=== PATIENT | female | born 1995 | race Caucasian/White ===

== ENCOUNTER → 2018-02-07 | Outpatient (REF) | payer OTHER | LOC: M SFHCLERA 14:48 | DX: J02.9 Acute pharyngitis, unspecified (principal) ==

== ENCOUNTER 2018-02-24 16:39 | Day surgery (SDC) | payer OTHER ==
[2018-02-24] MEDS ORDERED: NS 1,000 ML IV ×2 (17:30→18:30)
[2018-02-24 17:45] LABS: HEMATOCRIT 36.2 % (36.0-47.0); HEMOGLOBIN 11.9 g/dl (12.0-15.5); MEAN CORPUSCULAR HEMOGLOBIN 25.7 pg (27.0-33.0); MEAN CORPUSCULAR HGB CONC 32.9 g/dl (32.0-36.5); MEAN CORPUSCULAR VOLUME 78.2 fl (80.0-96.0); PLATELET COUNT, AUTOMATED 257 10^3/uL (150-450); RED BLOOD COUNT 4.63 10^6/uL (4.00-5.40); RED CELL DISTRIBUTION WIDTH 15.9 % (11.5-14.5); WHITE BLOOD COUNT 15.9 10^3/uL (4.0-10.0)
[2018-02-24] MEDS: ACETAMINOPHEN 650 MG SUPP PR (18:10)
[2018-02-24 18:16] LABS: ANION GAP 9 MEQ/L (8-16); BLOOD UREA NITROGEN 5 MG/DL (7-18); CALCIUM LEVEL 8.3 MG/DL (8.5-10.1); CARBON DIOXIDE LEVEL 23 MEQ/L (21-32); CHLORIDE LEVEL 108 MEQ/L (98-107); GLUCOSE, FASTING 82 MG/DL (70-100); HCG, SERUM QUANTITATIVE 13078 MIU/ML; POTASSIUM SERUM 3.4 MEQ/L (3.5-5.1); SODIUM LEVEL 140 MEQ/L (136-145)
[2018-02-24] MEDS: ACETAMINOPHEN 650 MG SUPP As Ordered (18:23)
[2018-02-24] MEDS ORDERED: IBUPROFEN 600 MG TAB PO (18:45)
[2018-02-24] MEDS ORDERED: KETOROLAC 30 MG/ML VIAL (J1885) IV (18:45)
[2018-02-24] MEDS ORDERED: PERCOCET 5MG/325MG TAB As Ordered (18:52)
[2018-02-24] MEDS: PERCOCET 5MG/325MG TAB PO (18:53)
[2018-02-24] MEDS ORDERED: ONDANSETRON 4MG/2ML VIAL (J2405) IV (19:15)
[2018-02-24] MEDS ORDERED: fentaNYL 100 MCG/2 ML INJECTION (J3010) IV (19:15)
[2018-02-24] MEDS ORDERED: LR 1,000 ML IV (19:15)
== END 2018-02-24 19:40 | disposition home or self-care (01) ==
LOC: M SDC 16:39
DX: O02.1 Missed abortion (principal)
CPT/HCPCS: 59820

== ENCOUNTER → 2018-02-24 | Outpatient (CLI) | payer OTHER ==
[~2018-02-24] MED LIST: GLYCOPYRROLATE INJ 0.2 MG/ML 2 ML VIAL As Ordered; KETOROLAC 60 MG/2 ML VIAL (J1885) As Ordered; LIDOCAINE 2% INJ 100 MG/5 ML SDV (FOR ANES.) As Ordered; MIDAZOLAM INJ 2 MG/2 ML VIAL (J2250) As Ordered; NEOSTIGMINE 10 MG/10 ML VIAL (J2710) As Ordered; ONDANSETRON 4MG/2ML VIAL (J2405) As Ordered; PROPOFOL 200 MG/20 ML VIAL As Ordered; ROCURONIUM BROMIDE 50 MG/5 ML VIAL As Ordered; SUCCINYLCHOLINE 100 MG/5 ML SYRINGE (J0330) As Ordered; dexameTHASONE 4 MG/ML 1ML VIAL (J1100) As Ordered; ePHEDrine SULFATE 25 MG/5 ML(5MG/ML) SYRINGE As Ordered; fentaNYL 100 MCG/2 ML INJECTION (J3010) As Ordered
== END ==
LOC: M RAD 14:27
DX: O36.80X0 Pregnancy with inconclusive fetal viability, not applicable or unspecified (principal); Z3A.08 8 weeks gestation of pregnancy
CPT/HCPCS: J2405

== ENCOUNTER 2018-04-19 13:40 | Emergency (ER) | payer OTHER ==
[2018-04-19 16:01] LABS: KETONE, URINE AUTO RFX 1+ mg/dL (NEGATIVE); LEUKOCYTE ESTERASE UR AUTO RFX NEGATIVE (NEGATIVE); MUCUS, URINE RFX MODERATE (NEGATIVE); NITRITE, URINE AUTO RFX NEGATIVE (NEGATIVE); RBC, URINE AUTO RFX 1 /HPF (0-3); SPECIFIC GRAVITY UR AUTO RFX 1.023 (1.002-1.035); SQUAM EPITHELIAL CELL UR AURFX 7 /HPF (0-6); WBC, URINE AUTO RFX 1 /HPF (0-3)
[2018-04-19] MEDS: diphenhydrAMINE INJ 50MG/ML VIAL (J1200) IV (16:08)
[2018-04-19] MEDS: NS 1,000 ML IV (16:08)
[2018-04-19] MEDS: METOCLOPRAMIDE INJ 10MG/2ML VIAL (J2765) IV (16:09)
[2018-04-19 16:19] LABS: BASO % 0.3 % (0.0-1.0); EOS # 0.1 10^3/uL (0.0-0.50); EOS % 0.9 % (0.0-3.0); HEMATOCRIT 38.3 % (36.0-47.0); HEMOGLOBIN 12.3 g/dl (12.0-15.5); IMMATURE GRANULOCYTE % 0.4 % (0-3.0); LYMPH # 2.8 10^3/uL (1.5-6.5); LYMPH % 19.6 % (24.0-44.0); MEAN CORPUSCULAR HEMOGLOBIN 25.9 pg (27.0-33.0); MEAN CORPUSCULAR HGB CONC 32.1 g/dl (32.0-36.5); MEAN CORPUSCULAR VOLUME 80.6 fl (80.0-96.0); MONO # 0.7 10^3/uL (0.0-0.8); MONO % 4.9 % (0.0-5.0); NEUTROPHILS # 10.5 10^3/uL (1.8-7.7); NEUTROPHILS % 73.9 % (36.0-66.0); PLATELET COUNT, AUTOMATED 240 10^3/uL (150-450); RED BLOOD COUNT 4.75 10^6/uL (4.00-5.40); WHITE BLOOD COUNT 14.2 10^3/uL (4.0-10.0)
[2018-04-19 17:05] LABS: ALBUMIN 3.4 GM/DL (3.2-5.2); ALKALINE PHOSPHATASE 75 U/L (45-117); ALT/SGPT 15 U/L (12-78); ANION GAP 9 MEQ/L (8-16); AST/SGOT 14 U/L (7-37); BILIRUBIN,DIRECT < 0.1 MG/DL (0.0-0.2); BILIRUBIN,TOTAL 0.3 MG/DL (0.2-1.0); BLOOD UREA NITROGEN 7 MG/DL (7-18); CALCIUM LEVEL 8.9 MG/DL (8.5-10.1); CARBON DIOXIDE LEVEL 24 MEQ/L (21-32); CHLORIDE LEVEL 107 MEQ/L (98-107); CREATININE FOR GFR 0.52 MG/DL (0.55-1.30); GLUCOSE, FASTING 69 MG/DL (70-100); HCG, SERUM QUANTITATIVE 33159 MIU/ML; LIPASE 51 U/L (73-393); POTASSIUM SERUM 4.1 MEQ/L (3.5-5.1); SODIUM LEVEL 140 MEQ/L (136-145); TOTAL PROTEIN 6.8 GM/DL (6.4-8.2)
== END 2018-04-19 17:20 | disposition home or self-care (01) ==
LOC: M ED 13:40
DX: O99.280 Endocrine, nutritional and metabolic diseases complicating pregnancy, unspecified trimester (principal); E86.0 Dehydration; O21.0 Mild hyperemesis gravidarum; O99.330 Smoking (tobacco) complicating pregnancy, unspecified trimester; F17.210 Nicotine dependence, cigarettes, uncomplicated; O09.90 Supervision of high risk pregnancy, unspecified, unspecified trimester; Z3A.00 Weeks of gestation of pregnancy not specified; Z87.42 Personal history of other diseases of the female genital tract; Z98.890 Other specified postprocedural states
CPT/HCPCS: J1200

== ENCOUNTER 2018-05-29 11:53 | Emergency (ER) | payer OTHER ==
[2018-05-29 13:03] LABS: BASO % 0.3 % (0.0-1.0); EOS # 0.1 10^3/uL (0.0-0.50); EOS % 0.8 % (0.0-3.0); HEMATOCRIT 37.9 % (36.0-47.0); HEMOGLOBIN 12.6 g/dl (12.0-15.5); IMMATURE GRANULOCYTE % 0.7 % (0-3.0); LYMPH # 2.3 10^3/uL (1.5-6.5); MEAN CORPUSCULAR HEMOGLOBIN 27.2 pg (27.0-33.0); MEAN CORPUSCULAR HGB CONC 33.2 g/dl (32.0-36.5); MEAN CORPUSCULAR VOLUME 81.9 fl (80.0-96.0); MONO # 0.7 10^3/uL (0.0-0.8); MONO % 4.9 % (0.0-5.0); NEUTROPHILS # 11.8 10^3/uL (1.8-7.7); NEUTROPHILS % 78.3 % (36.0-66.0); PLATELET COUNT, AUTOMATED 214 10^3/uL (150-450); RED BLOOD COUNT 4.63 10^6/uL (4.00-5.40); RED CELL DISTRIBUTION WIDTH 15.4 % (11.5-14.5); WHITE BLOOD COUNT 15.1 10^3/uL (4.0-10.0)
[2018-05-29 13:18] LABS: KETONE, URINE AUTO RFX NEGATIVE (NEGATIVE); LEUKOCYTE ESTERASE UR AUTO RFX NEGATIVE (NEGATIVE); MUCUS, URINE RFX SMALL (NEGATIVE); NITRITE, URINE AUTO RFX NEGATIVE (NEGATIVE); RBC, URINE AUTO RFX 0 /HPF (0-3); SPECIFIC GRAVITY UR AUTO RFX 1.015 (1.002-1.035); SQUAM EPITHELIAL CELL UR AURFX 2 /HPF (0-6); WBC, URINE AUTO RFX 0 /HPF (0-3)
[2018-05-29 14:54] LABS: HCG, SERUM QUANTITATIVE 46688 MIU/ML
== END 2018-05-29 14:34 | disposition home or self-care (01) ==
LOC: M ED 11:53
DX: O20.8 Other hemorrhage in early pregnancy (principal); O34.80 Maternal care for other abnormalities of pelvic organs, unspecified trimester; Z3A.12 12 weeks gestation of pregnancy; Z79.899 Other long term (current) drug therapy
CPT/HCPCS: 76801

== ENCOUNTER → 2018-07-12 | Outpatient (CLI) | payer OTHER | LOC: M RAD 06:01 | DX: Z36.89 Encounter for other specified antenatal screening (principal); Z3A.17 17 weeks gestation of pregnancy | CPT/HCPCS: 76811 ==

== ENCOUNTER → 2018-08-09 | Outpatient (CLI) | payer OTHER ==
[~2018-08-09] MED LIST changes: +APAP325T4 PO; +BENA25CA4 PO; -GLYCOPYRROLATE INJ 0.2 MG/ML 2 ML VIAL As Ordered; -KETOROLAC 60 MG/2 ML VIAL (J1885) As Ordered; -LIDOCAINE 2% INJ 100 MG/5 ML SDV (FOR ANES.) As Ordered; -MIDAZOLAM INJ 2 MG/2 ML VIAL (J2250) As Ordered; -NEOSTIGMINE 10 MG/10 ML VIAL (J2710) As Ordered; -ONDANSETRON 4MG/2ML VIAL (J2405) As Ordered; +PRENTAB55 PO; -PROPOFOL 200 MG/20 ML VIAL As Ordered; +REGL10TA6 PO; -ROCURONIUM BROMIDE 50 MG/5 ML VIAL As Ordered; -SUCCINYLCHOLINE 100 MG/5 ML SYRINGE (J0330) As Ordered; +ZOFR4TAB14 SL; -dexameTHASONE 4 MG/ML 1ML VIAL (J1100) As Ordered; -ePHEDrine SULFATE 25 MG/5 ML(5MG/ML) SYRINGE As Ordered; -fentaNYL 100 MCG/2 ML INJECTION (J3010) As Ordered
--- NOTE | 2018-08-10 04:20 | REP ---
Clinical: Anatomical evaluation. Comparison: 07/12/2018 . Findings: Examination demonstrates a single live intrauterine in cephalic presentation. motion is identified by technologist. Placenta is noted a anterior and grade air grade zero without evidence for placenta previa or abruption. Amniotic fluid volume is normal. Cervix measures 3.0 cm in length and appears closed. No evidence for nuchal cord. Gestational age by LMP 22 weeks 0 days with NADEEM 12/13/2018 . Gestational age by current measurements 22 weeks 1 day with NADEEM at 12/12/2018 . FHR equals 151 beats per minute. Estimated weight 475 grams ( 49th percentile). Anatomical assessment demonstrates normal structures including cranium, choroid plexus, cavum, cerebellum/posterior fossa, facial profile , lungs, stomach, cord insertion/three-vessel cord, kidneys/bladder, spine, and extremities. Impression: Single live intrauterine in cephalic presentation. Evaluation is somewhat limited due to maternal body habitus. Continued limited evaluation of the nose/lips, heart/ventricular outflow tracts and diaphragm again noted. Electronically Signed by Carlos Saldana MD 08/10/2018 04:11 A
== END ==
LOC: M RAD 10:18
PROVIDERS: ATTEND Nurse Practitioner Women's Health
DX: Z34.82 Encounter for supervision of other normal pregnancy, second trimester (principal); Z3A.22 22 weeks gestation of pregnancy

== ENCOUNTER 2018-08-21 16:46 | Outpatient (CLI) | payer OTHER ==
[~2018-08-21] VITALS: Ht 154.9 cm; Wt 94.0 kg
[2018-08-21 17:05] VITALS: BP 124/67
[2018-08-21] MEDS ORDERED: LR 1,000 ML IV ONE (17:30)
[2018-08-21 18:38] VITALS: BP 113/65
--- NOTE | 2018-08-21 23:05 | IPNPDOC ---
Text Note Date of Service The patient was seen on 08/21/18. NOTE Triage Note Rhonda is a 23yo with SIUP at approx 23wk gestation who presents today with CC of nausea/vomiting, weakness and cramping. She notes she has had nausea her whole , took zofran yesterday but none today. She has not been able to tolerate any food/water today and began feeling weak. No fever/chills. No diarrhea. She feels movement. No vaginal bleeding/loss of fluid. No abnormal vaginal discharge/itching/discomfort. No burning with urination. Vitals wnl, afebrile General: WDWN, resting comfortably in bed Abdomen: soft, gravid, obese, NTTP Extremities: no edema of BLE Doptones positive Electra: no ctx Assessment: Rhonda is a 23yo with SIUP at approx 23wk with PO intolerance for one day with ongoing nausea for her whole - after receiving 2L of IV LR in triage she stated she felt much better- cramping sensation resolved (never any ctx on toco) as well as nausea. Vitals wnl, benign exam. Plan: -safe for discharge -next visit is routine 24wk visit, pt instructed to keep -continue zofran prn -pt instructed to continue PO hydrating and rest, try a warm bath -return precautions given Dr. Enma Askew MD VS,Kalen, I+O VS, Kalen, I+O Vital Signs Date Time Temp Pulse Resp B/P (MAP) Pulse Ox O2 Delivery O2 Flow Rate FiO2 08/21/18 18:38 76 18 113/65 (81) 08/21/18 17:05 98.2 Enma Askew MD Aug 21, 2018 23:05
== END 2018-08-21 19:43 | disposition home or self-care (01) ==
LOC: M LDO 16:46
PROVIDERS: ATTEND Obstetrics & Gynecology
DX: O21.9 Vomiting of pregnancy, unspecified (principal); Z3A.23 23 weeks gestation of pregnancy
CPT/HCPCS: 59025; G0378; G0463

== ENCOUNTER → 2018-08-24 | Outpatient (CLI) | payer OTHER ==
--- NOTE | 2018-08-24 20:52 | REP ---
Clinical: Anatomical evaluation. Comparison: 08/09/2018 . Findings: Examination demonstrates a single live intrauterine in breech presentation. motion is identified by technologist. Placenta is noted anterior and grade grade 1 without evidence for placenta previa or abruption. Amniotic fluid volume is normal. Cervix measures 3.7 cm in length and appears closed. No evidence for nuchal cord. Gestational age by LMP 24 weeks 1 day with NADEEM 12/13/2018 . Gestational age by current measurements 24 weeks 3 days with NADEEM 12/11/2018 . FHR equals 157 beats per minute. Estimated weight 708 grams ( 57th percentile). Anatomical assessment demonstrates normal structures including cranium, choroid plexus, cavum, cerebellum/posterior fossa, facial features, lungs, four-chamber heart/right ventricular outflow tract, diaphragm, stomach, cord insertion/three-vessel cord, kidneys/bladder, spine, and extremities. Impression: Single live intrauterine in breech presentation demonstrating appropriate interval growth. In conjunction with prior examination anatomical assessment is complete and normal. No gross abnormalities are identified. Electronically Signed by Carlos Saldana MD 08/24/2018 08:44 P
== END ==
LOC: M RAD 14:09
PROVIDERS: ATTEND Nurse Practitioner Women's Health
DX: Z36.89 Encounter for other specified antenatal screening (principal); O32.1XX0 Maternal care for breech presentation, not applicable or unspecified; Z3A.24 24 weeks gestation of pregnancy

== ENCOUNTER 2018-09-16 13:26 | Outpatient (CLI) | payer OTHER ==
[~2018-09-16] VITALS: Ht 154.9 cm; Wt 95.7 kg
[2018-09-16 13:44] VITALS: BP 114/57
[2018-09-16] MEDS ORDERED: ASPI1TAB PO (14:09)
[2018-09-16 14:13] LABS: AMORPHOUS SEDIMENT MODERATE (NEGATIVE); APPEARANCE, URINE CLOUDY (CLEAR); BACTERIA, URINE AUTO NEGATIVE (NEGATIVE); BILIRUBIN, URINE AUTO NEGATIVE (NEGATIVE); BLOOD, URINE BLOOD NEGATIVE (NEGATIVE); COLOR, URINE YELLOW (YELLOW); GLUCOSE, URINE (UA) AUTO NEGATIVE (NEGATIVE); KETONE, URINE AUTO NEGATIVE (NEGATIVE); LEUKOCYTE ESTERASE, URINE AUTO NEGATIVE (NEGATIVE); MUCUS, URINE MODERATE (NEGATIVE); NITRITE, URINE AUTO NEGATIVE (NEGATIVE); PROTEIN, URINE AUTO NEGATIVE (NEGATIVE); RBC, URINE AUTO 1 /HPF (0-3); SPECIFIC GRAVITY URINE AUTO 1.019 (1.002-1.035); SQUAMOUS EPITHELIAL CELL UR AU 2 /HPF (0-6); WBC, URINE AUTO 1 /HPF (0-3)
== END 2018-09-16 15:34 | disposition home or self-care (01) ==
LOC: M LDO 13:26
PROVIDERS: ATTEND Obstetrics & Gynecology
DX: O26.893 Other specified pregnancy related conditions, third trimester (principal); R10.30 Lower abdominal pain, unspecified; Z3A.27 27 weeks gestation of pregnancy
CPT/HCPCS: 81001; 87086; G0378; G0463

== ENCOUNTER 2018-10-25 13:00 | Inpatient (IN) | payer OTHER ==
[~2018-10-25] VITALS: Ht 154.9 cm; Wt 98.0 kg
[~2018-10-25 13:00] MED LIST changes: +ASPI1TAB PO
[2018-10-25 13:18] VITALS: BP 121/64
[2018-10-25 15:12] VITALS: BP 114/53
--- NOTE | 2018-10-25 15:43 | IPNPDOC ---
Text Note Date of Service The patient was seen on 10/25/18. NOTE 23 y/o at 33+0 with decr'd FM all day today. Had plenty of nl FM yesterday. Also c/o increased pressure that makes her feel like defecating, but this does not decrease after she poops. Slight incr in urination frequency but no pain with voiding/defecation. Was originally seen in the clinic when she called for decr'd FM, but the tracing after 30 min and stim and feeding her did not improve with noted min rajesh and no accels (no decels however). When presented, random BS was in the 70's. Preg c/b smoker and states max 5/day, obesity and well controlled A1GDM NST on L&D for the last 1-2 hrs shows min to mod rajesh and no decels but no accels either At rads now for BPP Urine dip showed well hydrated and no evid UTI SBAR to Dr Askew soon. Sessions VS,Kalen, I+O VSKalen, I+O Vital Signs Date Time Temp Pulse Resp B/P (MAP) Pulse Ox O2 Delivery O2 Flow Rate FiO2 10/25/18 15:12 98.6 90 18 114/53 (73) 10/25/18 13:33 97 SESSIONS,WARD Swain MD Oct 25, 2018 15:43
--- NOTE | 2018-10-25 16:16 | REP ---
Clinical: well-being. Comparison: 08/24/2018 . Findings: Examination demonstrates a single live intrauterine in breech presentation. motion is identified by technologist. Placenta is noted anterior and grade grade II/III without evidence for placenta previa or abruption. Amniotic fluid volume is normal. Cervix measures 2.6 cm in length and appears closed. Nuchal cord cannot be excluded. Gestational age by LMP 33 weeks 0 days with NADEEM 12/13/2018 . FHR equals 160 beats per minute. Biophysical profile score: 4/8 (breathing 0; movement 0; tone 2; AFV 2) Amniotic fluid index: 17.5 cm (8.3 - 24.5) Umbilical cord SD ratio: 2.89 (2.00 - 3.00). Impression: Single live advanced gestation in breech presentation. Biophysical profile score equals 4/8 Electronically Signed by Carlos Saldana MD 10/25/2018 04:08 P
[2018-10-25] MEDS ORDERED: BETAMETHASONE SOLUSPAN 6MG/ML INJ 5ML (J0702) IM SCH (16:45)
--- NOTE | 2018-10-25 16:53 | IPNPDOC ---
Text Note Date of Service The patient was seen on 10/25/18. NOTE Decision for overnight observation I assumed care of Rhonda at 1615 today. She is a 23y/o at 33+0 who presented to clinic today with DFM. She felt normal movement yesterday. She had 30min NST in clinic with minimal variability and no accels (no decels), so was sent to L&D for further monitoring/workup. When she presented, random BS was in the 70's. FHRT remained Cat II with min rajesh, no accels, no decels, so she was sent to radiology for BPP which is 4/10 (0 for breathing and movement, TAMEKA 17.4cm, normal umbilical doppler). I have made the decision to give her a course of betamethasone and perform continuous FHRT overnight which Rhonda is amenable to. Will continue fingerstick glucose checks fasting and 2hr PP. Dr. Enma Askew MD VS,Kalen, I+O VSKalen, I+O Vital Signs Date Time Temp Pulse Resp B/P (MAP) Pulse Ox O2 Delivery O2 Flow Rate FiO2 10/25/18 15:12 98.6 90 18 114/53 (73) 10/25/18 13:33 97 Enma Askew MD Oct 25, 2018 16:53
[2018-10-25 21:32] VITALS: BP 129/58
[2018-10-25] MEDS ORDERED: ACETAMINOPHEN 500 MG TAB As Ordered ONE (21:47)
[2018-10-25] MEDS: ACETAMINOPHEN 500 MG TAB PO PRN (21:50)
[2018-10-26] VITALS (10 sets, daily range): BP systolic 105–154; BP diastolic 59–73
[2018-10-26] MEDS ORDERED: MIRALAX *UNIT DOSE* 17GM PACKET PO PRN
[2018-10-26] MEDS ORDERED: ONDANSETRON 4MG/2ML VIAL (J2405) As Ordered ONE ×2 (05:57→14:55)
[2018-10-26] MEDS ORDERED: FLEET ENEMA PR PRN (06:00)
[2018-10-26] MEDS ORDERED: ONDANSETRON 4MG/2ML VIAL (J2405) IV ONE (06:00)
[2018-10-26] MEDS ORDERED: PENICILLIN G POTASSIUM IV 5 MU in D5W MINI-BAG PLUS 100 ML IV STA ×2 (06:24→06:42)
[2018-10-26] MEDS ORDERED: NIFEdipine 10 MG CAP PO ONE (06:30)
[2018-10-26] MEDS ORDERED: BUTORPHANOL 2 MG/ML INJ (J0595) IV ONE (07:15)
[2018-10-26 07:17] LABS: HEMATOCRIT 35.1 % (36.0-47.0); HEMOGLOBIN 11.7 g/dl (12.0-15.5); MEAN CORPUSCULAR HEMOGLOBIN 27.6 pg (27.0-33.0); MEAN CORPUSCULAR HGB CONC 33.3 g/dl (32.0-36.5); MEAN CORPUSCULAR VOLUME 82.8 fl (80.0-96.0); PLATELET COUNT, AUTOMATED 208 10^3/uL (150-450); RED BLOOD COUNT 4.24 10^6/uL (4.00-5.40)
[2018-10-26 07:35] LABS: WHITE BLOOD COUNT 35.5 10^3/uL (4.0-10.0)
--- NOTE | 2018-10-26 08:15 | HPEPDOC ---
Obstetrical History & Physical General Date of Admission 10/26/2018 History of Present Illness Rhonda is a 23yo with SIUP at 33w1d who presented yesterday with DFM, had non-reactive NST in clinic with subsequent monitoring on L&D that showed no accels, min rajesh, no decels. She had a BPP done which was 4/10 (0 for breathing/movement)- breech presentation. She was given a dose of betamethasone around 1700 and kept overnight for observation related to the non-reassuring surveillance. However, overnight the patient continued to report that she was quite constipated and requested medications to effect a BM. She has not had a normal bowel movement in 4 days. She had miralax last night and was up throughout the night trying to have a BM. No regular ctx were ever detected and she always denied any contraction pain. However, toco early this morning revealed some ctx, so I performed SCE which was 4/90/-3 (bulging bag). Overnight, the FHRT actually improved with small accels and improved variability. New dx of labor, patient changed from observation status to admission. Chief Complaint: Other (decreased movement) Information Provided By: Patient Care Care: Good Care Dating Final EDC: December 13, 2018 Final EDC by: 1st trimester (US) Antepartum Course Diagnos(e)s Obesity (starting BMI 39.7), smoker (5 cig/day decreased to 1 cig/day), A1GDM Height (inches): 61 Pre- weight (lbs.): 215 Admission Weight (lbs.): 212 Past Medical History Past Obstetrical History : Past Obstetrical History: Primgravida (history of early sab 2017 and 2018, D&C) Past Medical History Medical History Obesity, tobacco use Surgical History: Dilatation and Curettage, Gallbladder, [place] teeth Family History Significant Family History: No pertinent family hx Social History Marital Status: Family situation: Spouse/partner home Psychosocial History: No pertinent psych hx * Smoker: current smoker Alcohol: Denies Drugs: denies Imunizations Tdap status: current Influenza Status: current Allergies Coded Allergies: No Known Allergies (Unverified , 09/16/18) Medications Scheduled Ondansetron (Zofran Odt) 4 Mg Tab, 1 TAB SL TID for nausea/vomiting Physical Examination Physical Examination GENERAL: Alert and oriented times three. ABDOMEN: Gravid and non-tender to touch. FETUS: Is breech by formal TAUS EXTREMITIES: No edema Vital Signs/I&O Vital Signs Date Time Temp Pulse Resp B/P (MAP) Pulse Ox O2 Delivery O2 Flow Rate FiO2 10/26/18 06:37 98.5 102 126/73 (90) 10/25/18 15:12 18 10/25/18 13:33 97 I&O- Last 24 Hours up to 6 AM 10/26/18 06:00 Intake Total 1100 ml Balance 1100 ml Laboratory Data 24H LABS Laboratory Tests 2 10/25/18 13:29: Bedside Glucose (Misc Panel) 85 10/25/18 16:28: Bedside Glucose (Misc Panel) 97 10/25/18 20:46: Bedside Glucose (Misc Panel) 171H 10/26/18 07:03: 10/26/18 07:04: Bedside Glucose (Misc Panel) 116H CBC/BMP Microbiology Microbiology 10/25/18 Group B Streptococcus Screen (ROMULO), Received Pending Pertinent Laboratoy Data Blood Type: A+ RBC Antibody Screen: Negative HIV: Negative Hepatitis B: Negative Hepatitis C: Unknown Rapid Plasma Reagin: Nonreactive Rubella: Immune Varicella: Nonreactive Chlamydia/Gonorrhea: Unknown Group B Streptococcus: Unknown Glucose Tolerance Test: 151 (161/213/210/155) Anatomy Ultrasound Ultrasound Date: Aug 09, 2018 Placenta Location: Anterior Placenta Previa: Yes (limited eval of face/heart) Other Ultrasounds follow up anatomy for face/heart views wnl 08/24/18 Steroid Therapy Steroid Therapy: Yes (first dose 1700 on 10/25) Vaginal Examination Dilation: 4 cm Effacement: 90% Station: -2 Cervical Consistency: Soft Cervical Position: Anterior Presentation: Breech presentation Assessment Heart Rate (FHR): 140 Variability: Moderate Accelerations: None Decelerations: None Tocometer Contractions: Yes Frequency: regular, every 3-7 min. Duration: greater than 60 seconds Assessment/Plan Assessment Rhonda is a 23yo with SIUP at 33w1d who originally presented with DFM, had non-reassuring surveillance so observed overnight with CEFM and during that time regular ctx noted so SCE performed, , pre-term labor diagnosed. GBS unknown. Breech by formal TAUS last night. Received first dose betamethasone 1700 last night. Currently Cat I FHRT with mod rajesh/no decels/no accels. Plan Admit and orient discussed diagnosis of PTL at length, expectation that baby will go to NICU, discussed delivery will be via when indicated given breech presentation answered all of patient's questions NICU team alerted to possibility of delivery today 2nd dose of betamethasone 12mg IM tonight at 1700 Start nifedipine 20mg PO x1 now, then 10mg q4hr after that Diet: clear liquids Group B Streptococcus (GBS) unknown: PCN per protocol (GBS swab was collected last night) Labs and intravenous (IV) per unit protocol No G/C DNA result in chart, will order Continue fingerstick glucose checks fasting/2hr PP Will try to delay delivery as long as possible to make patient steroid complete, but will move toward delivery if she proceeds into active labor or for any other /maternal indications Full report given to Sessions at 0800 MD Jamilah Arreola Katrina D MD Oct 26, 2018 07:15
[2018-10-26] MEDS ORDERED: PRENATAL VITAMINS CHEWABLE TABLET PO SCH (09:00)
[2018-10-26] MEDS ORDERED: NIFEdipine 10 MG CAP PO SCH ×3 (10:00→12:30)
[2018-10-26] MEDS ORDERED: PENICILLIN G POTASSIUM IV 2.5 MU in APPROPRIATE DILUENT 1 EA IV SCH ×2 (10:30→11:00)
[2018-10-26] MEDS: ACETAMINOPHEN 500 MG TAB PO PRN (12:39)
[2018-10-26] MEDS ORDERED: AZITHROMYCIN INJ 500MG VIAL (J0456) As Ordered ONE (13:21)
[2018-10-26] MEDS ORDERED: BICITRA 30ML SOLN UDC As Ordered ONE (13:21)
[2018-10-26] MEDS ORDERED: ceFAZolin 2 GM/D5W 50 ML IV BAG (J0690 PER 500MG) As Ordered ONE (13:21)
--- NOTE | 2018-10-26 13:33 | IPNPDOC ---
Text Note Date of Service The patient was seen on 10/26/18. NOTE Significant incr in pain with ctx's and feeling more pressure. NST Cat 1 /no palpable presenting part TAUS confirms persistent breech I.C. obtained for PCD OR team notified and setting up Ancef/Ramesha/Leticia Sessions VS,Kalen, I+O VS, Kalen I+O Laboratory Tests 10/26/18 07:03 Red Blood Count 4.24, Mean Corpuscular Volume 82.8, Mean Corpuscular Hemoglobin 27.6, Mean Corpuscular Hemoglobin Concent 33.3, Red Cell Distribution Width 13.8 Vital Signs Date Time Temp Pulse Resp B/P (MAP) Pulse Ox O2 Delivery O2 Flow Rate FiO2 10/26/18 08:05 18 10/26/18 07:28 98.5 116 117/65 (82) 10/25/18 13:33 97 I&O- Last 24 Hours up to 6 AM 10/26/18 06:00 Intake Total 1100 ml Balance 1100 ml TATIANA,WARD Swain MD Oct 26, 2018 13:33
[2018-10-26] MEDS ORDERED: AZITHROMYCIN INJ 500 MG, VIAL MATE ADAPTER 1 EACH in D5W 250 ML IV ONE (13:45)
[2018-10-26] MEDS ORDERED: BICITRA 30ML SOLN UDC PO ONE (13:45)
[2018-10-26] MEDS ORDERED: ONDANSETRON 4MG/2ML VIAL (J2405) IV PRN ×2 (14:18→15:45)
[2018-10-26] MEDS ORDERED: METOCLOPRAMIDE INJ 10MG/2ML VIAL (J2765) IV PRN ×2 (14:18→15:30)
[2018-10-26] MEDS ORDERED: NALOXONE INJ 0.4 MG/1 ML VIAL (J2310) IV PRN ×2 (14:18)
[2018-10-26] MEDS ORDERED: NALBUPHINE HCL 10 MG/ML AMP (J2300) IV PRN ×2 (14:18→15:45)
[2018-10-26] MEDS ORDERED: diphenhydrAMINE INJ 50MG/ML VIAL (J1200) IV PRN ×2 (14:18→15:45)
[2018-10-26] MEDS ORDERED: OXYTOCIN INJ 10 UNITS/ML VIAL (J2590) As Ordered ONE (14:36)
[2018-10-26] MEDS ORDERED: KETOROLAC 60 MG/2 ML VIAL (J1885) As Ordered ONE (14:53)
[2018-10-26] MEDS ORDERED: MORPHINE PRES-FREE INJ 10 MG/10 ML VIAL (J2274) As Ordered ONE (15:05)
[2018-10-26] MEDS ORDERED: OXYTOCIN DRIP 30 UNITS in APPROPRIATE DILUENT 1 EA IV SCH (15:16)
[2018-10-26] MEDS ORDERED: MEASLES,MUMPS,RUBELLA VACCINE INJ (MMR-II) (90707) SC SCH (15:30)
[2018-10-26] MEDS ORDERED: RHOGAM 300 MCG (1500 IU) INJ (J2790) IM SCH (15:30)
[2018-10-26 15:35] LABS: CORD GAS HCO3 V 22.5 MEQ/L; CORD GAS O2 SAT V 47.6 %; CORD GAS PCO2 V 55.9 mmHg; CORD GAS PH V 7.223 UNITS; CORD GAS PO2 V 21.4 mmHg; CORD GAS SBC V 18.4 MEQ/L; CORD GAS TCO2 V 24.2 MEQ/L
[2018-10-26] MEDS ORDERED: NORCO, ANEXSIA 5/325MG TABLET (HYDROcodone/ACETAMINOPHEN) PO PRN (15:45)
[2018-10-26] MEDS ORDERED: fentaNYL 100 MCG/2 ML INJECTION (J3010) IV PRN (15:45)
[2018-10-26] MEDS ORDERED: OXYTOCIN 30 UNITS IN 0.9% NaCl 500ML IV BAG (J2590) As Ordered ONE (16:18)
[2018-10-26] MEDS: PERCOCET 5MG/325MG TAB PO PRN (17:53)
--- NOTE | 2018-10-26 18:36 | IPNPDOC ---
Text Note Date of Service The patient was seen on 10/26/18. NOTE Called by PP RN, and in NICU has obvious infection with bands, etc Also pt Temp is creeping up, last 100.2. CBC with WBC's of 35. Due to the above, will place on Unasyn 3 gm q 6 hrs Sessions VS,Kalen I+O VS, Kalen I+O Laboratory Tests 10/26/18 07:03 Red Blood Count 4.24, Mean Corpuscular Volume 82.8, Mean Corpuscular Hemoglobin 27.6, Mean Corpuscular Hemoglobin Concent 33.3, Red Cell Distribution Width 13.8 Vital Signs Date Time Temp Pulse Resp B/P (MAP) Pulse Ox O2 Delivery O2 Flow Rate FiO2 10/26/18 18:27 16 10/26/18 18:00 100.2 114 133/61 (85) 97 I&O- Last 24 Hours up to 6 AM 10/26/18 06:00 Intake Total 1100 ml Balance 1100 ml SESSIONS,WARD Swain MD Oct 26, 2018 18:36
[2018-10-26] MEDS: AMPICILLIN SOD/SULBACTAM SOD 3 GM in D5W MINI-BAG PLUS 100 ML IV SCH (20:00)
[2018-10-26] MEDS: DOCUSATE SODIUM 100 MG CAP PO SCH (21:18)
[2018-10-26] MEDS: KETOROLAC 30 MG/ML VIAL (J1885) IV SCH (21:18)
[2018-10-26] MEDS ORDERED: LR 1,000 ML IV SCH (22:30)
[2018-10-27 02:00] VITALS: BP 121/65
[2018-10-27] MEDS: KETOROLAC 30 MG/ML VIAL (J1885) IV SCH ×2 (02:09→08:19)
[2018-10-27] MEDS: AMPICILLIN SOD/SULBACTAM SOD 3 GM in D5W MINI-BAG PLUS 100 ML IV SCH ×4 (02:18→20:00)
[2018-10-27] MEDS: PERCOCET 5MG/325MG TAB PO PRN ×4 (03:21→22:00)
[2018-10-27 06:00] VITALS: BP 111/59
[2018-10-27] MEDS: ENOXAPARIN 40 MG/0.4 ML SYRINGE (J1650) SC SCH (06:05)
[2018-10-27 06:48] LABS: HEMOGLOBIN 9.8 g/dl (12.0-15.5); MEAN CORPUSCULAR HEMOGLOBIN 27.9 pg (27.0-33.0); MEAN CORPUSCULAR HGB CONC 33.8 g/dl (32.0-36.5); MEAN CORPUSCULAR VOLUME 82.6 fl (80.0-96.0); PLATELET COUNT, AUTOMATED 157 10^3/uL (150-450); RED BLOOD COUNT 3.51 10^6/uL (4.00-5.40); WHITE BLOOD COUNT 19.7 10^3/uL (4.0-10.0)
[2018-10-27] MEDS: PRENATAL VITAMINS CHEWABLE TABLET PO SCH (08:18)
[2018-10-27] MEDS: DOCUSATE SODIUM 100 MG CAP PO SCH ×2 (08:18→21:00)
--- NOTE | 2018-10-27 09:13 | IPNPDOC ---
Text Note Date of Service The patient was seen on 10/27/18. NOTE POD1 PLTCS for labor/breech at 33+1. On Unasyn due to obvious intraamniotic infection, on abx for infection as well. States feeling well, pain controlled with prescribed meds. Baby bonding and feeding well as can be expected in the NICU. No heavy VB. Lochia slowing. Ambulatory. Tolerating PO without issues. UO adeq overnight in her Simmons. No CP/LP/SOB. VSSAF although had T's 100.1 and 1000.2 NAD A&O RRR CTAB LE no C/C/E Ut at U-2, firm Bandage intact with no strikethru CBC appropr this AM with signif drop in WBC a/p: Doing well. Cont routine postop care. D/C likely tomorrow or the next day depending on fever status, etc. D/C Simmons soon with DTV in 6 hrs. Cont Unasyn until 4 doses postop. Sessions Kalen SORTO, I+O VSKalen I+O Laboratory Tests 10/27/18 06:28 Red Blood Count 3.51 L, Mean Corpuscular Volume 82.6, Mean Corpuscular Hemoglobin 27.9, Mean Corpuscular Hemoglobin Concent 33.8, Red Cell Distribution Width 14.3 Vital Signs Date Time Temp Pulse Resp B/P (MAP) Pulse Ox O2 Delivery O2 Flow Rate FiO2 10/27/18 06:00 98.6 118 18 111/59 (76) 98 l I&O- Last 24 Hours up to 6 AM 10/27/18 06:00 Intake Total 1180 ml Output Total 1250 ml Balance -70 ml SESSIONS,WARD Swain MD Oct 27, 2018 09:13
[2018-10-27 10:00] VITALS: BP 105/56
--- NOTE | 2018-10-27 11:09 | RO ---
DATE OF PROCEDURE: 10/26/2018 PREOPERATIVE DIAGNOSIS: labor and breech presentation. POSTOPERATIVE DIAGNOSIS labor and breech presentation, with very likely chorioamnionitis present. OPERATIVE PROCEDURE: Primary low transverse section. SURGEON: Dr. Celestine Green. LOGGING RAFTER LABORER: Dr. Robbie Barton, who was essential in retraction of all tissue layers, delivery of the baby and closure of all tissue layers. CLASSIFICATION OF SURGERY: Urgent. ANESTHESIA: Spinal ESTIMATED BLOOD LOSS: 500 mL DRAINS: 100 mL of clear urine in the Simmons catheter FLUIDS: Lactated Ringer's, 1100 mL. PREOPERATIVE ANTIBIOTICS: Ancef 2 grams IV and azithromycin 500 mg IV. SPECIMENS: Placenta to pathology. INDICATION: The patient was admitted for decreased movement and a non-reassuring heart tracing and a subsequent biophysical profile which was 4/8. She was given steroids and watched overnight on continuous monitoring. Her tracing improved. However, she was noted to be in labor with initial exam of 4 cm earlier this morning and after approximately 1 hour of worsening pain and beginning to feel pressure, I checked her and she was 6-7 cm with a bulging bag and breech presentation confirmed at that time by ultrasound. Informed consent was obtained for delivery due to active labor and breech presentation. FINDINGS: Female infant in breech presentation easily delivered without difficulty, weighin 2130 grams and 4 pounds 11 ounces. Venous blood gas showed a pH of 7.2 and base excess of -6. Arterial blood gas did not run. Also of note, there was a significant amount of a thick white substance on the inside of the uterine cavity on the endometrial lining and the amnion. Therefore, I believe the patient had subclinical chorioamnionitis. This is supported by the fact that she had a white count of 35. She never had a fever during her almost 24 hours of hospitalization up to this point, so she never received antibiotics other than her operative prophylaxis of Ancef and azithromycin. DESCRIPTION OF OPERATION: The patient was taken to the operating room with IV in place and spinal anesthetic was easily obtained. She was prepped and draped in normal sterile fashion after Simmons catheter was placed and heart tones were normal. Then, after being tested to ensure the spinal was adequate, A Pfannenstiel still skin incision was carried down to the layer of fascia, which was nicked in the midline and extended bilaterally the extent of the skin incision. Juan clamps used to elevate the superior and inferior aspects of the fascial incision and the underlying rectus muscles were dissected off sharply. Rectus muscles were midline and with the surgeon's digit, I easily obtained peritoneal access and then with a stretching maneuver, we created an adequate peritoneal window. Bladder blade was placed bladder. Bladder flap was easily created and a low transverse uterine incision was carried down to the level of the amnion which was nicked and clear fluid was noted. The infant's presenting part was barry breech, which was easily delivered through the incision followed by the bilateral arms and the head without difficulty. Cord was clamped times two and cut and was taken to the waiting resuscitation team, which also consisted of the electron beam photo mask technician, Dr. Garcia. Cord blood was obtained. Cord gases were obtained, and with fundal massage and Pitocin running wide open, the placenta was delivered without difficulty. It was, at this point, that we noted the aforementioned smudgy cheesy substance on the inside of the uterine cavity consistent with likely chorioamnionitis, although the fluid was mostly clear, possibly purulent, although there was no obvious smell associated with chorioamnionitis. Uterus was delivered through the incision, wrapped in a warm sponge and cleared of all clots and debris with two dry sponges. The uterine incision was then closed with a running suture of 0 Vicryl from left to right in a running locked fashion. The imbrication stitch was performed with 0 Monocryl. Irrigation was performed behind the uterus. Excellent tone was noted and the uterus was returned to the abdomen. The uterus was returned to the abdomen and the colic gutters were cleared bilaterally. The uterine incision was found to be hemostatic and the peritoneum was closed with a running #2-0 Vicryl. The rectus bellies were inspected and found to be hemostatic. The fascia was closed from left to right with a running suture of 0 Vicryl. Subcutaneous tissue was copiously irrigated, made to be hemostatic and reapproximated #2-0 Vicryl. Skin was closed with #4-0 Monocryl in a subcuticular running stitch from left to right without difficulty. Optifoam dressing was placed. The patient's legs were frogged and with a bimanual exam, confirmed that the uterus was at U -1 and firm and a small amount of clots were expressed from the vagina and the cervix. All counts were correct including sponge, needles and instruments. MTDD
[2018-10-27] MEDS ORDERED: NICOTINE POLACRILEX 2 MG GUM PO PRN (12:30)
[2018-10-27] MEDS ORDERED: NICOTINE 7 MG/24 HR TRANSDERMAL TD ONE (13:00)
[2018-10-27 14:00] VITALS: BP 111/54
[2018-10-27] MEDS: CLINDAMYCIN IV SCH (16:10)
[2018-10-27] MEDS: IBUPROFEN 800 MG TAB PO SCH (16:54)
[2018-10-27 18:08] VITALS: BP 122/70
[2018-10-27] MEDS ORDERED: LOPERAMIDE 2 MG CAP PO ONE (18:45)
[2018-10-27] MEDS ORDERED: LOPERAMIDE 2 MG CAP PO PRN (18:45)
[2018-10-27 22:26] VITALS: BP 98/54
[2018-10-28] MEDS: IBUPROFEN 800 MG TAB PO SCH ×3 (00:21→16:05)
[2018-10-28] MEDS: CLINDAMYCIN IV SCH ×3 (00:21→16:02)
[2018-10-28] MEDS: AMPICILLIN SOD/SULBACTAM SOD 3 GM in D5W MINI-BAG PLUS 100 ML IV SCH ×4 (02:00→21:32)
[2018-10-28 02:37] VITALS: BP 103/52
[2018-10-28] MEDS: ENOXAPARIN 40 MG/0.4 ML SYRINGE (J1650) SC SCH (05:52)
[2018-10-28] MEDS: PERCOCET 5MG/325MG TAB PO PRN ×3 (05:53→20:08)
[2018-10-28 06:23] VITALS: BP 132/63
--- NOTE | 2018-10-28 08:16 | IPNPDOC ---
Text Note Date of Service The patient was seen on 10/28/18. NOTE POD2 PLTCS for labor/breech at 33+1. On Unasyn and clindamycin due to obvious intraamniotic infection and postop fever, in NICU on abx for infection as well. States feeling well, pain controlled with prescribed meds. Diarrhea that she had yesterday resolved with Imodium, has not used any of this overnight. Baby bonding and feeding well as can be expected in the NICU. No heavy VB. Lochia slowing. Ambulatory. Tolerating PO without issues. Voiding well. No CP/LP/SOB. VSSAF, last fever 101.6 on 29MAR at 1800 NAD A&O RRR CTAB LE no C/C/E Ut at U-2, firm, new cellulitis noted and outlined with a pen, slight erythema (rubor) and also slight calor noted Bandage intact with no strikethru a/p: Doing well although has a new cellulitis. Will cont the IV abx until tomorrow AM. Cont routine postop care. D/C hopefully MON AM, depending on fever status, etc. As long as fever does not return and cellulitis does not worsen, will plan on IV abx until tomorrow and then watching off the abx until MON AM. Sessions Kalen SORTO, I+O Kalen PATEL I+O Vital Signs Date Time Temp Pulse Resp B/P (MAP) Pulse Ox O2 Delivery O2 Flow Rate FiO2 10/28/18 06:23 96.6 91 18 132/63 (86) 10/27/18 10:00 99 I&O- Last 24 Hours up to 6 AM 10/28/18 06:00 Output Total 1026 ml Balance -1026 ml SESSIONS,WARD Swain MD Oct 28, 2018 08:16
[2018-10-28] MEDS: PRENATAL VITAMINS CHEWABLE TABLET PO SCH (08:26)
[2018-10-28] MEDS: DOCUSATE SODIUM 100 MG CAP PO SCH ×2 (08:26→21:00)
[2018-10-28 10:00] VITALS: BP 90/55
[2018-10-28 14:00] VITALS: BP 97/54
[2018-10-28 18:00] VITALS: BP 113/58
[2018-10-28 22:11] VITALS: BP 105/54
[2018-10-29] MEDS: CLINDAMYCIN IV SCH (00:36)
[2018-10-29] MEDS: IBUPROFEN 800 MG TAB PO SCH ×3 (00:37→16:32)
[2018-10-29] MEDS: PERCOCET 5MG/325MG TAB PO PRN ×4 (02:01→22:16)
[2018-10-29] MEDS: AMPICILLIN SOD/SULBACTAM SOD 3 GM in D5W MINI-BAG PLUS 100 ML IV SCH ×4 (03:08→21:35)
[2018-10-29] MEDS: ENOXAPARIN 40 MG/0.4 ML SYRINGE (J1650) SC SCH (05:41)
[2018-10-29 06:17] VITALS: BP 99/56
[2018-10-29 07:15] LABS: HEMATOCRIT 25.1 % (36.0-47.0); HEMOGLOBIN 8.1 g/dl (12.0-15.5); MEAN CORPUSCULAR HEMOGLOBIN 26.8 pg (27.0-33.0); MEAN CORPUSCULAR HGB CONC 32.3 g/dl (32.0-36.5); MEAN CORPUSCULAR VOLUME 83.1 fl (80.0-96.0); PLATELET COUNT, AUTOMATED 163 10^3/uL (150-450); RED BLOOD COUNT 3.02 10^6/uL (4.00-5.40)
[2018-10-29] MEDS: CLINDAMYCIN 900 MG in APPROPRIATE DILUENT 1 EA IV SCH ×2 (07:54→16:28)
[2018-10-29] MEDS: PRENATAL VITAMINS CHEWABLE TABLET PO SCH (08:03)
[2018-10-29] MEDS: DOCUSATE SODIUM 100 MG CAP PO SCH ×2 (08:04→21:35)
--- NOTE | 2018-10-29 09:51 | IPNPDOC ---
Progress Note Date of Service: Oct 29, 2018 Day#: 3 Progress Note POD3 Rhonda is a 23yo [id number] s/p uncomplicated PLTCS for labor/breech at 33w1d on 10/26. She is currently on IV Unasyn and clindamycin due to obvious intraamniotic infection and post-op fever, her infant is in the NICU on abx for infection as well. I went to see her while she was visiting her baby in the NICU this morning. She states she is overall feeling well, pain controlled with percocet/motrin. Lochia is minimal. Ambulatory without lightheadedness/dizziness. Tolerating regular diet. Voiding well without i ssues. Had diarrhea after surgery that resolved. She has a slight cough that was present on admission, she was getting over a head cold, it is non-productive and she has been using her IS. No CP/SOB. Vitals wnl, afebrile, last fever 100.8F on at 0230 General: Well-developed, well nourished, obese female in NAD, A&O, sitting comfortably holding her baby in NICU Abdomen: pannus noted, appropriately tender to palpation with no rebound/guarding, fundus firm at U-2, cellulitis of pannus superior to pfannensteil previously outlined with a pen, slight erythema (rubor) easily blanches and has not gone outside the outline. Small bruises present from lovenox administration. Bandage intact over pfannensteil with no strike-through Labs: 10/26: WBC 35.5, H/H 11.7/35.1, plt 208 10/27: WBC 19.7, H/H 9.8/29, plt 157 10/29: WBC 16, H/H 8.1/25.1, plt 163 Assessment: Rhonda is a 23yo [id number] s/p uncomplicated PLTCS for labor/breech at 33w1d on 10/26, doing well POD 3. She is receiving IV Unasyn and clindamycin due to obvious intraamniotic infection and post-op fever, with development of cellu litis of her pannus on 10/28. No worsening of cellulitis. She did have slight fever last night but immediately defervesced and has no other symptoms. WBC count appropriately declining. H/H stable. Vitals otherwise wnl, benign exam. Plan: -continue routine PP/post-op care -continue unasyn and clindamycin. however, if she has another fever, will change abx regimen and also perform a full fever workup -regular diet -vitals q4hr -motrin and percocet for pain -encourage ambulation and breast pumping and use of IS -continue prophylactic lovenox -will consider discharge tomorrow Dr. Enma Askew MD VS, I&O, 24H, Fishbone Vital Signs/I&O Vital Signs Date Time Temp Pulse Resp B/P (MAP) Pulse Ox O2 Delivery O2 Flow Rate FiO2 10/29/18 07:00 96 10/29/18 06:17 96.8 73 16 99/56 (70) I&O- Last 24 Hours up to 6 AM 10/29/18 06:00 Intake Total 50 ml Balance 50 ml Laboratory Data 24H LABS Laboratory Tests 2 10/29/18 06:55: Nucleated Red Blood Cells % (auto) 0.0 CBC/BMP Laboratory Tests 10/29/18 06:55 Red Blood Count 3.02 L, Mean Corpuscular Volume 83.1, Mean Corpuscular Hemoglobin 26.8 L, Mean Corpuscular Hemoglobin Concent 32.3, Red Cell Distribution Width 14.1 Microbiology Microbiology 10/25/18 Group B Streptococcus Screen (ROMULO) - Final, Complete Enma Askew MD Oct 29, 2018 09:38
[2018-10-29 10:00] VITALS: BP 115/66
[2018-10-29 14:00] VITALS: BP 124/60
[2018-10-29 18:00] VITALS: BP 139/85
--- NOTE | 2018-10-29 18:45 | REP ---
Clinical: Postoperative fever. Technique: PA and lateral. Comparison: None. Findings: The minimal right basilar atelectasis cannot be excluded and correlation with auscultation is recommended. No effusion. No pneumothorax. Cardiac silhouette is normal. Skeletal structures are intact. Impression: Cannot exclude minimal right lower lobe atelectasis. Electronically Signed by Carlos Saldana MD 10/29/2018 06:37 P
[2018-10-29 22:26] VITALS: BP 116/57
--- NOTE | 2018-10-30 00:17 | IPNPDOC ---
Text Note Date of Service The patient was seen on 10/30/18. NOTE Recurrent, daily fevers I was called by RN earlier while on busy L&D regarding oral temp of 101.6F at 1800. Otherwise no new sx and vitals wnl. Outlined presumed cellulitis has not gone outside the borders. Every day patient has a single episode of fever. I completed the fever workup with CXR, urine culture (cath specimen) and blood cultures for the sake of completion. CXR report reads possible right sided atalectasis. Patient has been ambulating well to NICU and is using IS reliably every hour (she had URI prior to her admission). Given her appropriately declining WBC count, I do not want to change her abx therapy (unasyn and clinda) just yet- together they have excellent coverage. On the differential dx list is septic pelvic thrombophlebitis, but patient is receiving IV abx as well as lovenox for her BMI. Will continue to observe for now. Continue Unasyn/clinda and lovenox. If she continues to have fevers or WBC count stops appropriately declining, will consi yadira changing abx regimen. urine and blood cultures pending encourage ambulation and use of IS Dr. Enma Askew MD VS,Kalen, I+O VSKalen I+O Laboratory Tests 10/29/18 06:55 Red Blood Count 3.02 L, Mean Corpuscular Volume 83.1, Mean Corpuscular Hemoglobin 26.8 L, Mean Corpuscular Hemoglobin Concent 32.3, Red Cell Distribution Width 14.1 Vital Signs Date Time Temp Pulse Resp B/P (MAP) Pulse Ox O2 Delivery O2 Flow Rate FiO2 10/29/18 23:04 18 10/29/18 22:26 97.0 78 116/57 (76) 10/29/18 18:00 97 I&O- Last 24 Hours up to 6 AM 10/30/18 06:00 Intake Total 850 ml Output Total 200 ml Balance 650 ml Enma Askew MD Oct 30, 2018 00:17
[2018-10-30] MEDS: CLINDAMYCIN 900 MG in APPROPRIATE DILUENT 1 EA IV SCH ×3 (00:42→16:00)
[2018-10-30] MEDS: IBUPROFEN 800 MG TAB PO SCH ×3 (00:42→16:55)
[2018-10-30 02:39] VITALS: BP 119/58
[2018-10-30] MEDS: AMPICILLIN SOD/SULBACTAM SOD 3 GM in D5W MINI-BAG PLUS 100 ML IV SCH ×4 (03:20→20:33)
[2018-10-30] MEDS: ENOXAPARIN 40 MG/0.4 ML SYRINGE (J1650) SC SCH (05:47)
[2018-10-30] MEDS: PERCOCET 5MG/325MG TAB PO PRN ×3 (05:48→20:53)
[2018-10-30 05:53] VITALS: BP 128/62
[2018-10-30 07:59] LABS: HEMATOCRIT 27.3 % (36.0-47.0); HEMOGLOBIN 8.8 g/dl (12.0-15.5); MEAN CORPUSCULAR HEMOGLOBIN 26.6 pg (27.0-33.0); MEAN CORPUSCULAR HGB CONC 32.2 g/dl (32.0-36.5); MEAN CORPUSCULAR VOLUME 82.5 fl (80.0-96.0); PLATELET COUNT, AUTOMATED 187 10^3/uL (150-450); RED BLOOD COUNT 3.31 10^6/uL (4.00-5.40); WHITE BLOOD COUNT 12.9 10^3/uL (4.0-10.0)
[2018-10-30] MEDS: DOCUSATE SODIUM 100 MG CAP PO SCH ×2 (09:00→20:31)
[2018-10-30] MEDS: PRENATAL VITAMINS CHEWABLE TABLET PO SCH (09:38)
[2018-10-30 10:00] VITALS: BP 105/60
[2018-10-30 14:00] VITALS: BP 128/67
[2018-10-30 18:23] VITALS: BP 119/70
--- NOTE | 2018-10-30 19:00 | IPNPDOC ---
Text Note Date of Service The patient was seen on 10/30/18. NOTE Late entry, pt seen at ~0900 POD4 PLTCS for labor/breech at 33+1. On Unasyn and clindamycin due to obvious intraamniotic infection and postop fever with cellulitis, premature in NICU on abx for infection as well. On Lovenox 40 mg QHS due to obesity and post-op status. States feeling well, pain controlled with prescribed meds. No further Diarrhea. Baby bonding and feeding well as can be expected in the NICU. No heavy VB. Lochia slowing. Ambulatory. Tolerating PO without issues. Voiding well. No CP/LP/SOB. Yesterday, blood cx's and urine cx obtained due to persistent fevers despite what should be adequate therapy VSSAF, last fever 101.6 on at 1800 NAD A&O RRR CTAB LE no C/C/E Ut at U-2, firm, cellulitis still present, slight erythema (rubor) and also slight calor noted Bandage intact with no strikethru a/p: Doing well with persistent cellulitis, rare once a day fever. Some concern for posisble Septic Pelvic Thrombophlebitis. If does not completely defervesce for 24 hours, will consider CT scan to r/o SPT. Routine postop care. Will cl osely monitor temps and examine tonight once gets to [id number]. Sessions Kalen SORTO, I+O Kalen PATEL I+O Laboratory Tests 10/30/18 07:34 Red Blood Count 3.31 L, Mean Corpuscular Volume 82.5, Mean Corpuscular Hemoglobin 26.6 L, Mean Corpuscular Hemoglobin Concent 32.2, Red Cell Distribution Width 14.1 Vital Signs Date Time Temp Pulse Resp B/P (MAP) Pulse Ox O2 Delivery O2 Flow Rate FiO2 10/30/18 18:23 99.8 95 20 119/70 (86) 10/30/18 14:00 98 I&O- Last 24 Hours up to 6 AM 10/30/18 05:59 Intake Total 850 ml Output Total 200 ml Balance 650 ml SESSIONS,WARD Swain MD Oct 30, 2018 19:00
--- NOTE | 2018-10-30 21:34 | IPNPDOC ---
Text Note Date of Service The patient was seen on 10/30/18. NOTE Here for exam only States no complaints VSSAF, last fever 101.6 on 31MAR at 1800 NAD A&O Ut at U-2, firm, cellulitis still present, erythema with calor still present, also slightly tender induration that was not present this AM Bandage intact with no strikethru a/p: Will cont her abx and get an abdom wall US to see if her induration is a fluid filled abscess or no. If non-diagnostic, will get a CT abdom /pelvis. Sessions VSKalen, I+O VSKalen I+O Laboratory Tests 10/30/18 07:34 Red Blood Count 3.31 L, Mean Corpuscular Volume 82.5, Mean Corpuscular Hemoglobin 26.6 L, Mean Corpuscular Hemoglobin Concent 32.2, Red Cell Distribution Width 14.1 Vital Signs Date Time Temp Pulse Resp B/P (MAP) Pulse Ox O2 Delivery O2 Flow Rate FiO2 10/30/18 20:53 19 10/30/18 18:23 99.8 95 119/70 (86) 10/30/18 14:00 98 I&O- Last 24 Hours up to 6 AM 10/30/18 06:00 Intake Total 850 ml Output Total 200 ml Balance 650 ml WARD SIMPSON MD Oct 30, 2018 21:34
[2018-10-30 22:00] VITALS: BP 140/86
--- NOTE | 2018-10-30 22:35 | REP ---
Clinical: Cellulitis. Evaluate for possible abscess. Technique: Real time marx scale ultrasound examination using linear high frequency transducer. Findings: Directed ultrasound examination overlying the area of maximal erythema demonstrates a complex subcutaneous fluid collection/phlegmon just below the umbilicus measuring approximately 3.9 x 2.7 x 3.9 cm and consistent with abscess. Surrounding edema noted. Impression: Complex fluid collection just inferior to the umbilicus in the subcutaneous tissues system with phlegmon/forming abscess. Electronically Signed by Carlos Saldana MD 10/30/2018 10:26 P
[2018-10-31] MEDS: CLINDAMYCIN 900 MG in APPROPRIATE DILUENT 1 EA IV SCH (00:46)
[2018-10-31] MEDS: IBUPROFEN 800 MG TAB PO SCH ×3 (00:46→17:06)
[2018-10-31 02:00] VITALS: BP 131/76
--- NOTE | 2018-10-31 02:27 | IPNPDOC ---
Text Note Date of Service The patient was seen on 10/31/18. NOTE Feelingwell other than slightly worsening tenderness just below the umbilicus where it is red/hot/indurated. Abdom wall US shows: Findings: Directed ultrasound examination overlying the area of maximal erythema demonstrates a complex subcutaneous fluid collection/phlegmon just below the umbilicus measuring approximately 3.9 x 2.7 x 3.9 cm and consistent with abscess. Surrounding edema noted. Impression: Complex fluid collection just inferior to the umbilicus in the subcutaneous tissues system with phlegmon/forming abscess. I&D indicated, IC obtained and TO done. 5 cc's lidocaine 1% used to infiltrate and wheal right over the golfball size induration. Of note, is just to the left of somebruising that is likely from a lovenox injection site. 1 cm incision opened and immediately cultured, wound Cx sent to lab. With a qtip and a Lilibeth, explored under and in a radius of 3-5 cm in all directions, hopefully breaking up loculations, etc. Moderate amount of drainage, not significantly purulent surprisingly. Packed with 1/2" Iodo gauze. Abd pad taped in place to minimize mess. Of note, T is climbing again, 0200 Temp 100.1. Plan on continuing the IV abx for now. Plan on removing and replacing the gauze tomorrow AM. Sessions VS,Kalen, I+O VSKalen I+O Laboratory Tests 10/30/18 07:34 Red Blood Count 3.31 L, Mean Corpuscular Volume 82.5, Mean Corpuscular Hemoglobin 26.6 L, Mean Corpuscular Hemoglobin Concent 32.2, Red Cell Distribution Width 14.1 Vital Signs Date Time Temp Pulse Resp B/P (MAP) Pulse Ox O2 Delivery O2 Flow Rate FiO2 10/31/18 02:00 100.1 106 19 131/76 (94) 10/30/18 14:00 98 I&O- Last 24 Hours up to 6 AM 10/31/18 06:00 Intake Total 452 ml Balance 452 ml SESSIONS,WARD Swain MD Oct 31, 2018 02:27
[2018-10-31] MEDS: PERCOCET 5MG/325MG TAB PO PRN ×4 (02:48→21:31)
[2018-10-31] MEDS: AMPICILLIN SOD/SULBACTAM SOD 3 GM in D5W MINI-BAG PLUS 100 ML IV SCH (02:49)
[2018-10-31] MEDS ORDERED: LIDOCAINE 1% MDV 20ML VIAL As Ordered ONE (05:32)
[2018-10-31 06:00] VITALS: BP 103/57
[2018-10-31] MEDS: ENOXAPARIN 40 MG/0.4 ML SYRINGE (J1650) SC SCH (06:22)
[2018-10-31] MEDS ORDERED: LIDOCAINE 1% MDV 20ML VIAL INFIL ONE (06:30)
--- NOTE | 2018-10-31 07:17 | IPNPDOC ---
Text Note Date of Service The patient was seen on 10/31/18. NOTE POD5 PLTCS for labor/breech at 33+1. On Unasyn and clindamycin due to obvious intraamniotic infection and postop fever with cellulitis, premature in NICU on abx for infection as well. On Lovenox 40 mg QHS due to obesity and post-op status. States feeling well, pain controlled with prescribed meds. Abdom wall discomfort has improved significantly since I&D at 0200 today. Draining a lot more. No further Diarrhea. Baby bonding and feeding well as can be expected in the NICU. No heavy VB. Lochia slowing. Ambulatory. Tolerating PO without issues. Voiding well. No CP/LP/SOB. Blood cx's neg thus far Urine cx still pending Wound cx from this AM pending VSSAF, last fever 101.6 on 31MAR at 1800 NAD A&O RRR CTAB, diminished on right LE no C/C/E Ut at U-2, firm, I&D site bandaged with ABD and tape on all 4 sides, definitely stained, if starts to seep thru can place another to avoid a mess Pfannensteil Bandage intact with no strikethru a/p: Doing well with cellulitis site, may be unrelated to the delivery as the abscess is much higher on her abd and close to her lovenox injection sites, no fever since evening 2 days ago. Lower concern for Septic Pelvic Thrombophlebitis. Plan on d/c of IV abx now and start PO augmentin. Daily I&D packing/dressing change to start tomorrow. Routine postop care. Will closely monitor temps. Start PO lactobacillus/acidophilus to decr risk of C Diff. Sessions Kalen SORTO, I+O Kalen PATEL I+O Laboratory Tests 10/30/18 07:34 Red Blood Count 3.31 L, Mean Corpuscular Volume 82.5, Mean Corpuscular Hemoglobin 26.6 L, Mean Corpuscular Hemoglobin Concent 32.2, Red Cell Distribution Width 14.1 Vital Signs Date Time Temp Pulse Resp B/P (MAP) Pulse Ox O2 Delivery O2 Flow Rate FiO2 10/31/18 06:00 97.8 78 17 103/57 (72) 10/30/18 14:00 98 I&O- Last 24 Hours up to 6 AM 10/31/18 06:00 Intake Total 452 ml Balance 452 ml SESSIONS,WARD Swain MD Oct 31, 2018 07:17
[2018-10-31] MEDS: PRENATAL VITAMINS CHEWABLE TABLET PO SCH (08:25)
[2018-10-31] MEDS: AUGMENTIN 875 MG TAB PO SCH ×2 (08:25→21:29)
[2018-10-31] MEDS: LACTOBACILLUS ACIDOPHILUS CAP (BACID) PO SCH ×2 (08:26→17:05)
[2018-10-31] MEDS: DOCUSATE SODIUM 100 MG CAP PO SCH ×2 (08:27→21:29)
[2018-10-31 10:00] VITALS: BP 140/77
[2018-10-31 14:40] VITALS: BP 149/91
[2018-10-31 22:00] VITALS: BP 142/94
[2018-11-01] VITALS (8 sets, daily range): BP systolic 117–142; BP diastolic 66–86
[2018-11-01] MEDS: IBUPROFEN 800 MG TAB PO SCH ×3 (00:45→17:06)
[2018-11-01] MEDS: PERCOCET 5MG/325MG TAB PO PRN ×3 (03:14→21:46)
[2018-11-01] MEDS: ENOXAPARIN 40 MG/0.4 ML SYRINGE (J1650) SC SCH (05:57)
[2018-11-01 07:16] LABS: HEMATOCRIT 25.3 % (36.0-47.0); HEMOGLOBIN 8.3 g/dl (12.0-15.5); MEAN CORPUSCULAR HEMOGLOBIN 26.7 pg (27.0-33.0); MEAN CORPUSCULAR HGB CONC 32.8 g/dl (32.0-36.5); MEAN CORPUSCULAR VOLUME 81.4 fl (80.0-96.0); PLATELET COUNT, AUTOMATED 240 10^3/uL (150-450); RED BLOOD COUNT 3.11 10^6/uL (4.00-5.40); WHITE BLOOD COUNT 15.6 10^3/uL (4.0-10.0)
[2018-11-01] MEDS: LACTOBACILLUS ACIDOPHILUS CAP (BACID) PO SCH ×2 (08:00→17:06)
[2018-11-01] MEDS: PRENATAL VITAMINS CHEWABLE TABLET PO SCH (09:00)
[2018-11-01] MEDS: DOCUSATE SODIUM 100 MG CAP PO SCH ×3 (09:00→21:45)
[2018-11-01] MEDS: AUGMENTIN 875 MG TAB PO SCH ×2 (09:37→21:45)
--- NOTE | 2018-11-01 10:00 | IPNPDOC ---
Text Note Date of Service The patient was seen on 11/01/18. NOTE POD6 PLTCS for labor/breech at 33 weeks. On Unasyn and clindamycin due to obv ious intraamniotic infection and postop fever with cellulitis, premature in NICU on abx for infection as well. On Lovenox 40 mg QHS due to obesity and post-op status. States feeling worse than yesterday, when she felt some relief after the I&D. Pain is localized to her cellulitis/abscess site. Cont's to drain. No further Diarrhea. Baby bonding and feeding well as can be expected in the NICU. No heavy VB. Lochia slowing. Ambulatory. Tolerating PO without issues. Voiding well. No CP/LP/SOB. Blood cx's neg thus far Urine cx neg Wound cx pending, gm stain was neg VSSAF, last fever 101.6 on 31MAR at 1800 NAD A&O RRR CTAB LE no C/C/E Ut at U-2, firm, I&D site examined and [acking removed. Abscess is larger and more indurated than yesterday. Calor and rubor present. Pfannensteil Bandage removed as has been soiled from the drainage from infected site 10-15 cm above, optifoam site replaced a/p: Abdom wall abscess, likely unrelated to the delivery as the abscess is much higher on her abd and close to her lovenox injection sites, no fever since evening 3 days ago. Needs a CT abd/pelvis to ensure no intraabdominal abscess, I suspect this to be the case, seems all suprafascial. Also needs to be opened in the main OR and a wound vac placed. Cont PO augmenti n and pain meds only by mouth, NPO o/w. OR called, orders placed. Sessions Kalen SORTO, I+O Kalen PATEL I+O Laboratory Tests 11/01/18 06:32 Red Blood Count 3.11 L, Mean Corpuscular Volume 81.4, Mean Corpuscular Hemoglobin 26.7 L, Mean Corpuscular Hemoglobin Concent 32.8, Red Cell Distribution Width 14.1 Vital Signs Date Time Temp Pulse Resp B/P (MAP) Pulse Ox O2 Delivery O2 Flow Rate FiO2 11/01/18 09:38 18 11/01/18 06:00 96.7 74 131/67 (96) 22 I&O- Last 24 Hours up to 6 AM 11/01/18 06:00 Intake Total 720 ml Balance 720 ml SESSIONS,WARD Swain MD Nov 01, 2018 10:00
[2018-11-01] MEDS: GASTROGRAFIN SOLUTION 30ML PO SCH ×2 (10:57→10:59)
[2018-11-01 11:08] LABS: BLOOD UREA NITROGEN 13 MG/DL (7-18); CREATININE FOR GFR 0.49 MG/DL (0.55-1.30); GLOMERULAR FILTRATION RATE > 60.0 (>60)
[2018-11-01] MEDS ORDERED: ISOVUE-370 76% 125ML VIAL (Q9967 PER ML) As Ordered ONE (12:02)
[2018-11-01] MEDS ORDERED: MIDAZOLAM INJ 2 MG/2 ML VIAL (J2250) As Ordered ONE (13:31)
[2018-11-01] MEDS ORDERED: PROPOFOL 500 MG/50 ML VIAL As Ordered ONE (13:31)
[2018-11-01] MEDS ORDERED: fentaNYL 100 MCG/2 ML INJECTION (J3010) As Ordered ONE ×2 (13:32→14:47)
[2018-11-01] MEDS ORDERED: LIDOCAINE 2% INJ 100 MG/5 ML SDV (FOR ANES.) As Ordered ONE (13:34)
--- NOTE | 2018-11-01 13:59 | REP ---
CT ABDOMEN PELVIS WITH IV AND ORAL CONTRAST: HISTORY: Abscess. Recent section. Comparison sonography is from October 30, 2018. The ultrasound examination showed a complex fluid collection inferior to the umbilicus. By ultrasound, this measured 3.9 x 3.[address] CONTRAST DOSE: 100 mL of intravenous Isovue 370. CT FINDINGS: Preliminary digital airport security screener radiograph shows a small quantity of subcutaneous air in the anterior abdominal wall soft tissues below the umbilicus. Bowel gas pattern is unremarkable. There are clips in the gallbladder fossa. Axial CT images demonstrate that there are small amounts of bilateral pleural fluid, right greater than left. There is also discoid atelectasis in the right middle lobe of the lung. The liver and the spleen are normal in size homogeneous in texture. No pancreatic abnormality is noted. Gallbladder surgically absent. Kidneys enhance symmetrically and are morphologically intact. There is a small amount of diffuse abdominal ascites. The uterus and ovaries are somewhat prominent. There is a 2 cm cyst in the right ovary. No free intraperitoneal air is seen. No intraperitoneal abscess is noted. Uterine texture is heterogeneous as expected in the state. There is diffuse abdominal wall subcutaneous edema and dermal thickening. No abscess is seen. A small air containing tract is seen to the right of midline in the infraumbilical region. Study is otherwise unremarkable. IMPRESSION: Heterogeneously enlarged uterus consistent with recent state. No intra-abdominal or abdominal wall abscess is seen. There is a small tract containing air in the soft tissues to the right of midline below the umbilicus in the anterior subcutaneous region. There is diffuse cellulitis pattern with dermal thickening and diffuse anterior abdominal wall subcutaneous thickening. Electronically Signed by Kehinde Madden MD 11/01/2018 02:57 P
[2018-11-01] MEDS ORDERED: BUPIVACAINE HCL 0.5% 30 ML VIAL As Ordered ONE (14:39)
[2018-11-01] MEDS ORDERED: PERCOCET 5MG/325MG TAB As Ordered ONE (15:42)
[2018-11-01] MEDS ORDERED: PERCOCET 5MG/325MG TAB PO PRN (15:45)
[2018-11-01] MEDS ORDERED: MEPERIDINE INJ 25 MG/ML VIAL (J2175) IV PRN (15:45)
[2018-11-01] MEDS ORDERED: ONDANSETRON 4MG/2ML VIAL (J2405) IV PRN (15:45)
[2018-11-01] MEDS ORDERED: METOCLOPRAMIDE INJ 10MG/2ML VIAL (J2765) IV PRN (15:45)
[2018-11-01] MEDS ORDERED: fentaNYL 100 MCG/2 ML INJECTION (J3010) IV PRN (15:45)
[2018-11-01] MEDS ORDERED: LR 1,000 ML IV SCH ×2 (15:45)
[2018-11-02] MEDS: IBUPROFEN 800 MG TAB PO SCH ×3 (01:27→17:41)
[2018-11-02 02:00] VITALS: BP 138/78
[2018-11-02 06:00] VITALS: BP 128/79
[2018-11-02] MEDS: ENOXAPARIN 40 MG/0.4 ML SYRINGE (J1650) SC SCH (06:41)
[2018-11-02] MEDS: PERCOCET 5MG/325MG TAB PO PRN ×3 (07:12→21:39)
--- NOTE | 2018-11-02 08:25 | IPNPDOC ---
Text Note Date of Service The patient was seen on 11/02/18. NOTE POD7 PLTCS for labor/breech at 33 weeks. POD1 abscess/subcut tissue debridement. Now on PO augmentin due to previous obvious intraamniotic infection and postop fever with cellulitis which then worsened to a suprafascial abscess that was opened/debrided/wound vac applioed yesteday by myself. Premature in NICU on abx for prematurity and infection as well. On Lovenox 40 mg QHS due to obesity and post-op status. States feeling much better after the infected area opening, I&D. Slight pain is localized to her operative/wound vac site. Cont's to drain. No further Diarrhea. Baby bonding and feeding well as can be expected in the NICU. No heavy VB. Lochia almost stopped. Ambulatory. Tolerating PO without issues. Voiding well. No CP/LP/SOB. Blood cx's neg thus far Urine cx neg First Wound cx pending, gm stain was neg Second Wound cx and gm stain pending VSSAF, last fever 101.6 on 31MAR at 1800 NAD A&O RRR CTAB LE no C/C/E Wound vac site/incision from yesterday is improved from yesterday. No further calor and induration is much improved. Output serosang and appropriate. site optifoam dressing replaced yesterday and is clean and dry CT prior to surgery yest: Heterogeneously enlarged uterus consistent with recent state. No intra-abdominal or abdominal wall abscess is seen. There is a small tract containing air in the soft tissues to the right of midline below the umbilicus in the anterior subcutaneous region. There is diffuse cellulitis pattern with dermal thickening and diffuse anterior abdominal wall subcutaneous thickening. a/p: Abdom wall abscess s/p debridement and wound vac placement, likely unrelated to the delivery as the abscess was much higher on her abd and close to her lovenox injection sites, no fever since evening 3 days ago. Cont PO augmentin and pain meds. CHG bath prior to visiting the NICU. Annmarie is filling out paperwork for home visits and wound care clinic and wound vac supplies, etc. May be ready for discharge tomorrow. Sessions Kalen SORTO, I+O Kalen PATEL I+O Vital Signs Date Time Temp Pulse Resp B/P (MAP) Pulse Ox O2 Delivery O2 Flow Rate FiO2 11/02/18 07:12 20 11/02/18 06:00 96.3 64 128/79 (13) 96 I&O- Last 24 Hours up to 6 AM 11/02/18 06:00 Intake Total 2220 ml Output Total 400 ml Balance 1820 ml TATIANA,WARD Swain MD Nov 02, 2018 08:25
[2018-11-02] MEDS: PRENATAL VITAMINS CHEWABLE TABLET PO SCH (08:59)
[2018-11-02] MEDS: AUGMENTIN 875 MG TAB PO SCH ×2 (08:59→21:39)
[2018-11-02] MEDS: LACTOBACILLUS ACIDOPHILUS CAP (BACID) PO SCH ×2 (08:59→17:40)
[2018-11-02] MEDS: DOCUSATE SODIUM 100 MG CAP PO SCH ×2 (09:00→21:00)
[2018-11-02 10:00] VITALS: BP 136/68
[2018-11-02 14:00] VITALS: BP 131/77
--- NOTE | 2018-11-02 15:51 | RO ---
DATE OF PROCEDURE: 11/01/2018 PREOPERATIVE DIAGNOSIS: Abdominal wall abscess. POSTOPERATIVE DIAGNOSIS: Abdominal wall abscess. PROCEDURE: Incision and drainage and wound debridement with wound VAC placement. SURGEON: Celestine Green MD MANAGER AGRICULTURE: ANESTHESIA: Monitored anesthesia care (MAC) with local. ESTIMATED BLOOD LOSS: 10 mL. DRAINS: None. FLUIDS: Lactated Ringer's 700 mL. SPECIMENS: Wound culture. INDICATION: Patient had a worsening very large indurated area of tissue which was also cellulitic and hot despite attempted incision and drainage (I and D) from yesterday morning. The packing was removed this morning and as it had not improved but actually was much worse, decision was made to undergo an I and D and wound debridement with wound VAC placement. FINDINGS: Baseball size indurated subcutaneous tissue with golf ball size amount of tissue removed. Hemostasis achieved. Significant irrigation performed and wound VAC placed. DESCRIPTION OF OPERATION: Patient was taken to the operating room where MAC anesthesia was easily obtained. Utilizing my prior stab wound of the I and D from yesterday, I simply extended the skin incision to approximately 6 cm, encompassing the left and right borders of the indurated large and obviously infected area. I opened the subcutaneous tissue, grasped the obviously infected portion with the Allis clamp, and removed a golf ball size portion of the baseball size tissue involvement. All tissue was noted to be soft and healthy and bled normally with surgical tool exploration. At this point, the area was copiously irrigated, made hemostatic. Approximately 10 mL of 0.5% Marcaine were injected along both skin edges. An appropriate size sponge was cut for the wound VAC, and the wound VAC was placed over the incision without difficulty and set to 125 per wound VAC order set recommendations. A good seal was ensured, and the patient was awakened from her MAC anesthesia and transferred to the postanesthesia care unit (PACU) in stable condition.
[2018-11-02 22:00] VITALS: BP 134/78
[2018-11-03] MEDS: IBUPROFEN 800 MG TAB PO SCH ×2 (01:33→08:57)
[2018-11-03] MEDS: ENOXAPARIN 40 MG/0.4 ML SYRINGE (J1650) SC SCH (05:24)
[2018-11-03] MEDS: PERCOCET 5MG/325MG TAB PO PRN ×2 (05:25→13:02)
[2018-11-03 06:00] VITALS: BP 152/88
[2018-11-03 08:28] VITALS: BP 164/92
[2018-11-03 08:40] VITALS: BP 140/90
[2018-11-03] MEDS: LACTOBACILLUS ACIDOPHILUS CAP (BACID) PO SCH (08:55)
[2018-11-03] MEDS: DOCUSATE SODIUM 100 MG CAP PO SCH (08:57)
[2018-11-03] MEDS: AUGMENTIN 875 MG TAB PO SCH (08:57)
--- NOTE | 2018-11-03 09:18 | IPNPDOC ---
Text Note Date of Service The patient was seen on 11/03/18. NOTE POD8 PLTCS for labor/breech at 33 weeks. POD2 andom wall abscess/subcut tissue debridement. Premature in NICU on abx for prematurity and infection as well. On Lovenox 40 mg QHS due to obesity and post-op status. States still feeling well, better than yesterday. Slight pain is localized to her operative/wound vac site. Cont's to drain. No further Diarrhea. Baby bonding and feeding well as can be expected in the NICU. No heavy VB. Lochia almost stopped. Ambulatory. Tolerating PO without issues. Voiding well. No CP/LP/SOB. Blood cx's neg thus far Urine cx neg First Wound cx pending, gm stain was neg Second Wound cx pending and gm stain neg VSSAF, last fever 101.6 on 31MAR at 1800 NAD A&O RRR CTAB LE no C/C/E Wound vac site/incision from yesterday is improved from yesterday. No further calor and induration is much improved. Output serosang and appropriate. site optifoam dressing is clean and dry a/p: Abdom wall abscess s/p debridement and wound vac placement, likely unrelated to the delivery as the abscess was much higher on her abd and close to her lovenox injection sites, no fever since evening 4 days ago. OK for discharge with extensive wound care clinic and home health visits for wound vac exams/changing, etc. Cont PO augmentin for 10 more days and pain meds, all picked up already. CHG bath prior to visiting the NICU. RAJWINDER Anguiano has filled out paperwork for home visits and wound care clinic and wound vac supplies, etc. which I have signed. Sessions Kalen SORTO, I+O Kalen PATEL I+O Vital Signs Date Time Temp Pulse Resp B/P (MAP) Pulse Ox O2 Delivery O2 Flow Rate FiO2 11/03/18 08:28 97.3 80 20 164/92 (116) 99 I&O- Last 24 Hours up to 6 AM 11/03/18 06:00 Intake Total 2040 ml Output Total 650 ml Balance 1390 ml WARD SIMPSON MD Nov 03, 2018 09:17
[2018-11-03] MEDS: PRENATAL VITAMINS CHEWABLE TABLET PO SCH (09:20)
--- NOTE | 2018-11-03 09:24 | DS.PDOC ---
Discharge Summary General Date of Admission Oct 26, 2018 at 09:48 Date of Discharge [id number] Discharge Summary ADMITTING DIAGNOSES: NRFHT, labor, breech DISCHARGE DIAGNOSES: PLTCS for breech, PTL///Chorioamnionitis///postop fever/infection///abdominal wall abscess needing debridement and wound vac placement HOSPITAL COURSE: Admitted for non-reassuring heart tracing, BPP was 4/8. Kept for continuous monitoring and steroids due to prematurity. She also was eventually found to be in labor and breech. delivery u ncomplicated. Had fevers for the first time after , placed on IV antibiotics. Eventually developed an abdominal wall cellulitis that turned into an abscess that was I/D'd and packed at the bedside. The following day, the site was much worse and required an open incision and debridement in the main OR with wound vac placement. Discharged home on PO antibiotics and pain meds 2 days after wound vac placement and 8 days after with wound care clinic involvement for home care/wound vac care, etc. Had not had a fever since , discharged on 5APR. DISCHARGE MEDICATIONS: Motrin, Lanolin, Percocet, Colace, Augmentin DISCHARGE INSTRUCTIONS: Nothing in the vagina for 6 weeks. No driving for 2 weeks. No bathing for 4 weeks, shower only if the wound transitional care liaison allow it-follow their recommendations closely. F/U in OBGYN clinic in 1-2 weeks for incision check and routine follow-up in 6-8 weeks. Sessions Vital Signs/I&Os Vital Signs Date Time Temp Pulse Resp B/P (MAP) Pulse Ox O2 Delivery O2 Flow Rate FiO2 11/03/18 08:28 97.3 80 20 164/92 (116) 99 I&O- Last 24 Hours up to 6 AM 11/03/18 06:00 Intake Total 2040 ml Output Total 650 ml Balance 1390 ml Microbiology Microbiology 10/29/18 Blood Culture - Preliminary, Resulted No Growth after 72 hours. All specime... 10/29/18 Blood Culture - Preliminary, Resulted No Growth after 72 hours. All specime... 10/25/18 Group B Streptococcus Screen (ROMULO) - Final, Complete 10/29/18 Urine Culture - Final, Complete 11/01/18 Gram Stain - Final, Complete 11/01/18 Wound Culture - Final, Complete 11/01/18 Anaerobic Culture - Final, Complete 10/31/18 Gram Stain - Final, Complete 10/31/18 Wound Culture - Final, Complete Discharge Medications Scheduled Ondansetron (Zofran Odt) 4 Mg Tab, 1 TAB SL TID for nausea/vomiting, (Reported) Allergies Coded Allergies: No Known Allergies (Unverified , 09/16/18) SESSIONS,WARD Swain MD Nov 03, 2018 09:24
[2018-11-03 10:12] VITALS: BP 142/93
[2018-11-03] MEDS ORDERED: COLA100C5 PO (11:49)
[2018-11-03] MEDS ORDERED: OXYC1TAB23 PO (11:49)
[2018-11-03] MEDS ORDERED: ADVI200C5 PO (11:49)
[2018-11-03] MEDS ORDERED: PREN200C PO (11:49)
[2018-11-03] MEDS ORDERED: AUGM875T28 PO (11:49)
[2018-11-03 14:00] VITALS: BP 147/85
== END 2018-11-03 14:33 | disposition home health service (06) | DRG 771 ==
LOC: M LDO 13:00 → M LDI 10-26 09:48 → M OBS 10-26 16:50 → M MS5PR 10-31 14:40
PROVIDERS: ADMIT Obstetrics & Gynecology; ATTEND Obstetrics & Gynecology
PROC: 10D00Z1 Extraction of Products of Conception, Low, Open Approach (ICD-10-PCS; principal; 2018-10-26 14:00)
PROC: 0JB80ZZ Excision of Abdomen Subcutaneous Tissue and Fascia, Open Approach (ICD-10-PCS; 2018-11-01)
DX: O60.23X0 Term delivery with preterm labor, third trimester, not applicable or unspecified (principal); O41.1230 Chorioamnionitis, third trimester, not applicable or unspecified; L02.211 Cutaneous abscess of abdominal wall; Z3A.33 33 weeks gestation of pregnancy; O99.334 Smoking (tobacco) complicating childbirth; F17.210 Nicotine dependence, cigarettes, uncomplicated; O99.214 Obesity complicating childbirth; O24.410 Gestational diabetes mellitus in pregnancy, diet controlled; E66.9 Obesity, unspecified; O32.1XX0 Maternal care for breech presentation, not applicable or unspecified; O76 Abnormality in fetal heart rate and rhythm complicating labor and delivery; O99.73 Diseases of the skin and subcutaneous tissue complicating the puerperium; Z37.0 Single live birth

== ENCOUNTER → 2018-11-09 | Outpatient (REF) | payer OTHER ==
[~2018-11-09] MED LIST changes: +ADVI200C5 PO; -ASPI1TAB PO; +ASPI81TA26 PO; +AUGM875T28 PO; +COLA100C5 PO; +OXYC1TAB23 PO; +PREN200C PO
[2018-11-09 15:22] LABS: INFLUENZA A AMPLIFICATION NEGATIVE (NEGATIVE); INFLUENZA B AMPLIFICATION NEGATIVE (NEGATIVE)
== END ==
LOC: M LAB REF 14:31
PROVIDERS: ATTEND Physician Assistant
DX: J11.1 Influenza due to unidentified influenza virus with other respiratory manifestations (principal)